=== PATIENT | female | born 1985 | race Caucasian/White ===

== ENCOUNTER 2023-11-20 18:23 | Emergency (ER) | payer SELFPAY ==
[~2023-11-20] VITALS: Ht 160 cm; Wt 90.9 kg
[2023-11-20 18:32] VITALS: TEMP 98.6
[2023-11-20] MEDS ORDERED: AMOXICILLIN 8751 TAB PO (18:48)
[2023-11-20] MEDS ORDERED: COLY-MYCIN S OT10 M1 OT (18:55)
[2023-11-20 19:15] VITALS: BP 164/91; PULSE 98
== END 2023-11-20 19:16 | disposition home or self-care (01) ==
LOC: COL.ER 18:23
DX: H66.91 Otitis media, unspecified, right ear (principal); H72.91 Unspecified perforation of tympanic membrane, right ear